=== PATIENT | female | born 1985 | race Caucasian/White ===

== ENCOUNTER 2016-09-04 02:46 | Emergency (ER) | payer OTHER ==
[~2016-09-04] VITALS: Ht 152.4 cm; Wt 58.0 kg
[~2016-09-04 02:46] MED LIST: AMO500 PO; BENZ100C70 PO; FERR27TA; FLUT9.9S NS; FOLI-49; IBUP-1542 PO; IBUP400T22 PO; ONDA4TAB8 PO; PEN500 PO; PRED20TA PO; PREN1TAB49; PSEU120T51 PO; PSEU30TA38 PO; UDROBDM PO
[2016-09-04 02:49] VITALS: Ht 152.4 cm; Wt 58.0 kg
--- NOTE | 2016-09-04 02:56 | ERD ---
ER Documentation Chief Complaint Date/Time DATE: 09/04/16 TIME: 02:56 Chief Complaint R ear pain since Saturday HPI 31-year-old female right ear pain since Saturday. She said she denies any fevers or chills. Denies any nausea vomiting. Denies any trauma. Denies any other current issues ROS All systems reviewed and are negative except as per history of present illness. Medications Home Meds Active Scripts Ondansetron Hcl* (Zofran*) 4 Mg Tablet, 4 MG PO Q8H Y for NAUSEA AND/OR VOMITING , #30 TAB Prov:REINA MARCELINO PA-C 12/18/15 Ibuprofen* (Motrin*) 400 Mg Tab, 400 MG PO Q6, #30 TAB Prov:REINA MARCELINO PA-C 12/18/15 Prednisone* (Prednisone*) 20 Mg Tab, 40 MG PO DAILY for 3 Days, TAB Start 06/27/2015 Prov:ANMOL JORDAN MD 07/26/15 Ibuprofen* (Motrin*) 400 Mg Tab, 400 MG PO Q6, #14 TAB Prov:ANMOL JORDAN MD 07/26/15 Amoxicillin* (Amoxicillin*) 500 Mg Cap, 500 MG PO TID for 10 Days, CAP Prov:ANMOL JORDAN MD 07/26/15 Guaifenesin-Dextromethorphan* (Robitussin* DM) 100MG/10MG/5ML Syrup, 10 ML PO QID, #120 ML Prov:ENDER KOHLI DO 05/19/15 Pseudoephedrine Hcl (Sudafed 12 Hour) 120 Mg Tablet.sa, 120 MG PO Q12, #10 Prov:ENDER KOHLI DO 05/19/15 Amoxicillin* (Amoxicillin*) 500 Mg Cap, 500 MG PO TID for 10 Days, CAP Prov:ENDER KOHLI DO 05/19/15 Prednisone* (Prednisone*) 20 Mg Tab, 60 MG PO DAILY for 5 Days, TAB Prov:ENDER KOHLI DO 05/19/15 Benzonatate* (Tessalon Perle*) 100 Mg Capsule, 100 MG PO Q8H Y for COUGH, #30 CAP Prov:FRIDA ESPINO PA-C 01/19/15 Fluticasone Propionate (Flonase Allergy Relief) 9.9 Ml [place].susp, 9.9 ML NS DAILY, #1 Prov:FRIDA ESPINO PA-C 01/19/15 Pseudoephedrine Hcl* (Pseudoephedrine Hcl*) 30 Mg Tablet, 30 MG PO Q6 Y for CONGESTION, #30 TAB Prov:FRIDA ESPINO PA-C 01/19/15 Ibuprofen* (Ibuprofen*) 600 Mg Tablet, 600 MG PO Q6 for 7 Days, TAB Prov:IFTIKHAR MURILLO 12/04/14 Penicillin V Potassium* (Penicillin V K*) 500 Mg Tab, 500 MG PO BID for 7 Days, TAB Prov:IFTIKHAR MURILLO 12/04/14 Reported Medications Ferrous Sulfate (Iron) 1 Tab Tablet 03/10/10 Folic Acid* (Folic Acid*) 1 Mg Tablet 03/10/10 Vits W-Ca,Fe,Fa(<1MG) () 1 Tab Tablet 03/10/10 Allergies Allergies: Coded Allergies: No Known Allergy (Verified , 12/18/15) PMhx/Soc Medical and Surgical Hx: pt denies Medical Hx, pt denies Surgical Hx History of Surgery: No Anesthesia Reaction: No Hx Neurological Disorder: No Hx Respiratory Disorders: No Hx Cardiac Disorders: No Hx Psychiatric Problems: No Hx Miscellaneous Medical Probl: Yes (GERD) Hx Alcohol Use: No Hx Substance Use: No Hx Tobacco Use: No Smoking Status: Never smoker Physical Exam Vitals Vital Signs Date Time Temp Pulse Resp B/P Pulse Ox O2 Delivery O2 Flow Rate FiO2 09/04/16 02:49 98.2 74 16 113/72 100 Physical Exam Const: [] Head: Atraumatic Eyes: Normal Conjunctiva ENT: Right TM with loss of light reflex. Neck: Full range of motion..~ No meningismus. Resp: Clear to auscultation bilaterally Cardio: Regular rate and rhythm, no murmurs Abd: Soft, non tender, non distended. Normal bowel sounds Skin: No petechiae or rashes Back: No midline or flank tenderness Ext: No cyanosis, or edema Neur: Awake and alert Psych: Normal Mood and Affect Procedures/MDM Medical decision-makin-year-old female with acute otitis media. Patient be discharged home with amoxicillin and Motrin. Follow-up with PCP. Return for worsening symptoms. Strict aftercare instructions given. Departure Diagnosis: Primary Impression: Otitis media Otitis media type: unspecified Laterality: unspecified laterality Chronicity: acute Qualified Code: H66.90 - Acute otitis media, unspecified laterality, unspecified otitis media type Condition: Stable SIENNA PELAEZ Sep 04, 2016 02:56
[2016-09-04] MEDS ORDERED: AMO500 PO (02:57)
[2016-09-04] MEDS ORDERED: IBUP800T25 PO (02:57)
== END 2016-09-04 03:00 | disposition home or self-care (01) ==
LOC: E/R 02:46
DX: H66.91 Otitis media, unspecified, right ear (principal)
CPT/HCPCS: 99283

== ENCOUNTER 2016-09-13 15:19 | Emergency (ER) | payer SELFPAY ==
[~2016-09-13 15:19] MED LIST changes: +IBUP800T25 PO
== END 2016-09-13 16:01 | disposition left against medical advice (07) ==
LOC: E/R 15:19
DX: Z53.21 Procedure and treatment not carried out due to patient leaving prior to being seen by health care provider (principal)

== ENCOUNTER 2016-12-22 07:32 | Emergency (ER) | payer OTHER ==
[~2016-12-22] VITALS: Ht 147.3 cm; Wt 59.0 kg
[~2016-12-22 07:32] MED LIST changes: -AMO500 PO; +AMOX500C2 PO; -PEN500 PO; +PENI500T PO
[2016-12-22 07:34] VITALS: Ht 147.3 cm; Wt 59.0 kg
[2016-12-22] MEDS ORDERED: AZIT250T94 PO (08:14)
[2016-12-22] MEDS ORDERED: PSEU30TA38 PO (08:14)
[2016-12-22] MEDS ORDERED: FLUT9.9S NASAL (08:14)
--- NOTE | 2016-12-22 08:50 | ERD ---
ER Documentation Chief Complaint Date/Time DATE: 12/22/16 TIME: 08:42 Chief Complaint Pt with B ear pain R>L x 4 days, no fever reported. decreasing hearing HPI Patient has a dry cough with sore throat. Positive nasal congestion and bilateral ear pain. Symptoms for 1 week. Patient is taking ibuprofen and Tylenol with no alleviation of symptoms. No sick contacts. Denies medical problems or allergies to medications. ROS All systems reviewed and are negative except as per history of present illness. Medications Home Meds Active Scripts Pseudoephedrine Hcl* (Pseudoephedrine Hcl*) 30 Mg Tablet, 30 MG PO Q6 Y for CONGESTION, #28 TAB Prov:FRIDA ESPINO PA-C 12/22/16 Fluticasone Propionate (Flonase Allergy Relief) 9.9 Ml [place].susp, 1 SPRAY NASAL DAILY, #1 BOTTLE TO EACH NOSTRIL Prov:FRIDA ESPINO PA-C 12/22/16 Azithromycin* (Zithromax*) 250 Mg Tablet, 250 MG PO .ZPACK DIRECTED, #6 TAB TAKE 500 MG (2 TABS) THE FIRST DAY THEN 250 MG (1 TAB) DAYS 2-5 Prov:FRIDA ESPINO PA-C 12/22/16 Ibuprofen* (Motrin*) 800 Mg Tab, 800 MG PO Q6, #30 TAB Prov:SIENNA PELAEZ 09/04/16 Amoxicillin* (Amoxicillin*) 500 Mg Cap, 500 MG PO TID for 7 Days, CAP Prov:SIENNA PELAEZ 09/04/16 Ondansetron Hcl* (Zofran*) 4 Mg Tablet, 4 MG PO Q8H Y for NAUSEA AND/OR VOMITING , #30 TAB Prov:REINA MARCELINO PA-C 12/18/15 Ibuprofen* (Motrin*) 400 Mg Tab, 400 MG PO Q6, #30 TAB Prov:REINA MARCELINO PA-C 12/18/15 Prednisone* (Prednisone*) 20 Mg Tab, 40 MG PO DAILY for 3 Days, TAB Start 06/27/2015 Prov:ANMOL JORDAN MD 07/26/15 Ibuprofen* (Motrin*) 400 Mg Tab, 400 MG PO Q6, #14 TAB Prov:ANMOL JORDAN MD 07/26/15 Amoxicillin* (Amoxicillin*) 500 Mg Cap, 500 MG PO TID for 10 Days, CAP Prov:ANMOL JORDAN MD 07/26/15 Guaifenesin-Dextromethorphan* (Robitussin* DM) 100MG/10MG/5ML Syrup, 10 ML PO QID, #120 [facility] 05/19/15 Pseudoephedrine Hcl (Sudafed 12 Hour) 120 Mg Tablet.sa, 120 MG PO Q12, #10 [facility] 05/19/15 Amoxicillin* (Amoxicillin*) 500 Mg Cap, 500 MG PO TID for 10 Days, CAP [facility] 05/19/15 Prednisone* (Prednisone*) 20 Mg Tab, 60 MG PO DAILY for 5 Days, TAB [facility] 05/19/15 Benzonatate* (Tessalon Perle*) 100 Mg Capsule, 100 MG PO Q8H Y for COUGH, #30 CAP Prov:FRIDA ESPINO PA-C 01/19/15 Fluticasone Propionate (Flonase Allergy Relief) 9.9 Ml [place].susp, 9.9 ML NS DAILY, #1 Prov:FRIDA ESPINO PA-C 01/19/15 Pseudoephedrine Hcl* (Pseudoephedrine Hcl*) 30 Mg Tablet, 30 MG PO Q6 Y for CONGESTION, #30 TAB Prov:FRIDA ESPINO PA-C 01/19/15 Ibuprofen* (Ibuprofen*) 600 Mg Tablet, 600 MG PO Q6 for 7 Days, TAB Prov:IFTIKHAR MURILLO 12/04/14 Penicillin V Potassium* (Penicillin V K*) 500 Mg Tab, 500 MG PO BID for 7 Days, TAB Prov:IFTIKHAR MURILLO 12/04/14 Reported Medications Ferrous Sulfate (Iron) 1 Tab Tablet 03/10/10 Folic Acid* (Folic Acid*) 1 Mg Tablet 03/10/10 Vits W-Ca,Fe,Fa(<1MG) () 1 Tab Tablet 03/10/10 Allergies Allergies: Coded Allergies: No Known Allergy (Verified , 12/18/15) PMhx/Soc Medical and Surgical Hx: pt denies Medical Hx History of Surgery: No Anesthesia Reaction: No Hx Neurological Disorder: No Hx Respiratory Disorders: No Hx Cardiac Disorders: No Hx Psychiatric Problems: No Hx Miscellaneous Medical Probl: Yes (GERD) Hx Alcohol Use: No Hx Substance Use: No Hx Tobacco Use: No Physical Exam Vitals Vital Signs Date Time Temp Pulse Resp B/P Pulse Ox O2 Delivery O2 Flow Rate FiO2 12/22/16 07:34 97.8 94 18 123/69 99 Physical Exam GENERAL: The patient is well-appearing, well-nourished, in no acute distress HEENT: Atraumatic. Conjunctivae are pink. Pupils equal, round, and reactive to light. There is no scleral icterus. Tympanic membranes clear bilaterally. Oropharynx clear. No nystagmus or photophobia. Positive sinus pressure NECK: C-spine is soft and supple. There is no meningismus. There is no cervical lymphadenopathy. CHEST: Clear to auscultation bilaterally. There are no rales, wheezes or rhonchi. HEART: Regular rate and rhythm. No murmurs, clicks, rubs or gallops. No S3 or S4. Procedures/MDM MDM: 31yr old female complaining of sinus sure with bilateral ear pain. No fevers. I will treat patient with antibiotics to cover for bacterial sinusitis. I have low suspicion for pneumonia or oral pharynx infection. Patient's TMs are within normal limits I have low suspicion for ear infection. Patient will be discharged with symptomatic medication and antibiotics and recommended to follow-up with primary care within 1-2 days for close evaluation. Patient is told if symptoms change or worsen to return to the ER. Patient understood and complied with plan Departure Diagnosis: Primary Impression: URI, acute Condition: Stable Patient Instructions: Sinusitis, Abx Tx Referrals: LAURA FOX MD (PCP) Additional Instructions: FOLLOW UP WITH YOUR PRIMARY CARE PHYSICIAN TOMORROW.Return to this facility if you are not improving as expected. FRIDA ESPINO PA-C Dec 22, 2016 08:50
== END 2016-12-22 08:49 | disposition home or self-care (01) ==
LOC: FTE 07:32
DX: J06.9 Acute upper respiratory infection, unspecified (principal)
CPT/HCPCS: 99283